=== PATIENT | female | born 1940 | race Caucasian/White ===

== ENCOUNTER 2016-09-18 08:34 | Outpatient (CLI) | payer MEDICARE, OTHER | END 2016-09-18 08:35 | disposition home or self-care (01) | DX: Z01.818 Encounter for other preprocedural examination (principal) ==

== ENCOUNTER 2016-09-18 09:35 | Outpatient (CLI) | payer MEDICARE, OTHER | END 2016-09-18 09:36 | disposition home or self-care (01) | DX: Z01.818 Encounter for other preprocedural examination (principal); J44.9 Chronic obstructive pulmonary disease, unspecified ==

== ENCOUNTER 2017-01-02 13:40 | Outpatient (CLI) | payer MEDICARE ==
[2017-01-02 14:17] LABS: ALBUMIN/GLOBULIN RATIO 1.2 (1.0-2.2); BILIRUBIN,TOTAL 0.7 mg/dL (0.2-1.0); CALCIUM 8.3 mg/dL (8.5-10.3); CREATININE 1.1 mg/dL (0.4-1.0); POTASSIUM 3.7 mmol/L (3.5-5.0); TOTAL PROTEIN 5.9 g/dL (6.7-8.2)
== END 2017-01-02 13:41 | disposition home or self-care (01) ==
LOC: LAB 13:40
PROVIDERS: ATTEND Physician Assistant Surgical
DX: N18.9 Chronic kidney disease, unspecified (principal)
CPT/HCPCS: 36415; 80053

== ENCOUNTER 2017-11-04 01:35 | Outpatient (CLI) | payer MEDICARE | END 2017-11-04 01:36 | disposition critical access hospital (66) | LOC: EMS 01:35 | PROVIDERS: ATTEND Surgery | DX: R10.9 Unspecified abdominal pain (principal); R11.0 Nausea | CPT/HCPCS: A0425; A0427 ==

== ENCOUNTER 2017-11-04 02:12 | Emergency (ER) | payer MEDICARE ==
--- NOTE | 2017-11-04 02:19 | ED Physician Documentation ---
PD HPI ABD PAIN - Stated complaint Stated Complaint: RUQ PAIN - History obtained from History obtained from: Patient, EMS - History of Present Illness Timing - onset: Today Timing - details: Abrupt onset, Still present Quality: Cramping, Aching, Sharp Location: RUQ Radiation: Right flank Worsened by: Eating Associated symptoms: Nausea. No: Vomiting, Diarrhea, Constipation Similar symptoms before: Has not had sx before Recently seen: Not recently seen - Additional information Additional information: Patient is a 77 year old female with a history of prior sbo and bowel resection who is presenting to the emergency department for abdominal pain. According to patient and ems, about an hour after eating grilled cheese patient developed right upper quadrant pain. patient thought the pain would go away but it persisted so she called ems. patient was treated with 50mcg enroute. Review of Systems Constitutional: denies: Fever, Chills Cardiac: denies: Chest pain / pressure, Palpitations Respiratory: denies: Dyspnea, Cough, Wheezing GI: reports: Abdominal Pain, Nausea. 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 - Present Medications Home Medications: Ambulatory Orders Medication Instructions Recorded Confirmed Lisinopril/Hydrochlorothiazide 1 each PO DAILY 06/26/13 02/25/16 [Lisinopril-Hctz 20-25 mg Tab] Pramipexole Di-HCl [Mirapex] 0.75 mg PO QPM 12/15/14 02/25/16 Escitalopram Oxalate [Lexapro] 40 mg PO DAILY 10/13/15 02/25/16 Levothyroxine Sodium [Synthroid] 100 mcg PO QDAC 02/25/16 02/25/16 Budesonide 0.25 mg IH BID #60 ampul.neb 02/26/16 Cefpodoxime Proxetil 200 mg PO BID #16 tablet 02/26/16 Ipratropium/Albuterol [Duoneb] 3 ml INH Q4HR #120 neb 02/26/16 Levothyroxine [Synthroid] 125 mcg PO DAILY tablet 02/26/16 Nebulizer Accessories [Pillow Mask] 1 each MC DAILY #30 each 02/26/16 Nebulizer [Aeroneb Go Nebulizer] 1 each MC RTDAILY #1 each 02/26/16 Nicotine 7 mg Patch [Nicoderm] 1 patch TOP DAILY #30 patch 02/26/16 predniSONE [Deltasone] 60 mg PO DAILY #8 tablet 02/26/16 Oxycodone HCl/Acetaminophen 1 - 2 each PO Q6H PRN #14 tablet 11/04/17 [Percocet 5-325 mg Tablet] - Allergies Allergies/Adverse Reactions: Allergies Allergy/AdvReac Type Severity Reaction Status Date / Time No Known Drug Allergies Allergy Verified 02/25/16 02:24 - Social History Does the pt smoke?: Yes Smoking Status: Former smoker Does the pt drink ETOH?: No Does the pt have substance abuse?: No - Immunizations Immunizations are current?: Yes - POLST Patient has POLST: Yes POLST Status: Limited Interventions PD ED PE NORMAL - Vitals Vital signs reviewed: Yes - General General: Alert and oriented X 3, Well developed/nourished - HEENT HEENT: Atraumatic, PERRL - Neck Neck: Supple, no meningeal sign - Cardiac Cardiac: RRR, No murmur - Respiratory Respiratory: No respiratory distress - Derm Derm: Normal color, Warm and dry, No rash - Extremities Extremities: No deformity - Neuro Neuro: Alert and oriented X 3, No motor deficit, Normal speech Eye Opening: Spontaneous Motor: Obeys Commands Verbal: Oriented GCS Score: 15 - Psych Psych: Normal mood PD ED PE EXPANDED - HEENT HEENT: Dry mucous membranes - Abdomen Abdomen: Tender to palpation, RUQ. No: Rebound, Guarding Results - Vitals Vitals: Vital Signs - 24 hr 11/04/17 11/04/17 11/04/17 02:17 02:56 03:39 Temperature 36.5 C Heart Rate 83 80 79 Respiratory 17 25 H 16 Rate Blood Pressure 179/81 H 204/95 H 186/72 H O2 Saturation 97 97 94 Oxygen O2 Source Room air - Labs Labs: Laboratory Tests 11/04/17 11/04/17 11/04/17 02:30 02:30 02:30 WBC 6.0 RBC 3.96 L Hgb 13.1 Hct 38.7 MCV 97.6 MCH 33.0 H MCHC 33.9 RDW 13.0 Plt Count 270 MPV 8.5 Neut # (Auto) 4.4 Lymph # (Auto) 0.9 L [place] # (Auto) 0.6 Eos # (Auto) 0.1 Baso # (Auto) 0.0 Absolute Nucleated RBC 0.00 Nucleated RBC % 0.0 PT 10.7 INR 0.9 APTT 25.6 Sodium 135 Potassium 3.4 L Chloride 102 Carbon Dioxide 25 Anion Gap 8.0 BUN 19 Creatinine 0.8 Estimated GFR (MDRD) 70 L Glucose 133 H Lactic Acid Calcium 8.1 L Total Bilirubin 0.4 AST 24 ALT 18 Alkaline Phosphatase 74 Troponin I Total Protein 6.5 L Albumin 3.2 Globulin 3.3 Albumin/Globulin Ratio 1.0 Lipase 144 H Urine Color Urine Clarity Urine pH Ur Specific [place] Urine Protein Urine Glucose (UA) Urine Ketones Urine Occult Blood Urine Nitrite Urine Bilirubin Urine Urobilinogen Ur Leukocyte Esterase Ur Microscopic Review Urine Culture Comments 11/04/17 11/04/17 11/04/17 02:30 02:30 02:44 WBC RBC Hgb Hct MCV MCH MCHC RDW Plt Count MPV Neut # (Auto) Lymph # (Auto) [place] # (Auto) Eos # (Auto) Baso # (Auto) Absolute Nucleated RBC Nucleated RBC % PT INR APTT Sodium Potassium Chloride Carbon Dioxide Anion Gap BUN Creatinine Estimated GFR (MDRD) Glucose Lactic Acid 1.2 Calcium Total Bilirubin AST ALT Alkaline Phosphatase Troponin I < 0.04 Total Protein Albumin Globulin Albumin/Globulin Ratio Lipase Urine Color YELLOW Urine Clarity CLEAR Urine pH 6.5 Ur Specific [place] 1.020 Urine Protein NEGATIVE Urine Glucose (UA) NEGATIVE Urine Ketones NEGATIVE Urine Occult Blood NEGATIVE Urine Nitrite NEGATIVE Urine Bilirubin NEGATIVE Urine Urobilinogen 0.2 (NORMAL) Ur Leukocyte Esterase NEGATIVE Ur Microscopic Review NOT INDICATED Urine Culture Comments NOT INDICATED - Rads (name of study) ct abd pelvis Radiology: Final report received, See rad report (no definitive findings for abd pain, but left sided lung mass appreciated) PD MEDICAL DECISION MAKING - ED course Complexity details: reviewed old records, reviewed results, re-evaluated patient , considered differential, d/w patient ED course: Patient was seen and examined at bedside. Iv access was gained and labs were drawn. Urine was collected. Patient's pain returned as the fentanyl wore off. Patient was treated with fluids and morphine for pain. Patient was found to have elevated lipase and normal urinalysis. CT abd/pelvis was ordered. when patient returned from imaging the results were reviewed. there was not clear explanation for her abdominal pain but there was a left sided lung mass. Patient was made aware of the findings. Patient was given detailed discharge and follow up instructions and was stable for discharge with outpatient follow up. - Sepsis Event Vital Signs: Vital Signs - 24 hr 11/04/17 11/04/17 11/04/17 02:17 02:56 03:39 Temperature 36.5 C Heart Rate 83 80 79 Respiratory 17 25 H 16 Rate Blood Pressure 179/81 H 204/95 H 186/72 H O2 Saturation 97 97 94 Oxygen O2 Source Room air Departure - Departure Disposition: 01 Home, Self Care Clinical Impression: Abdominal pain Condition: Good Instructions: ED Abdominal Pain Unkn Cause Follow-Up: Rafiq Mejia MD [Provider Admit Priv/Credential] - Prescriptions: Oxycodone HCl/Acetaminophen [Percocet 5-325 mg Tablet] 1 - 2 each PO Q6H PRN # 14 tablet PRN Reason: pain Comments: Your diagnostics today did not give a good reason for your abdominal pain. your lipase (pancreatic enzyme) was slightly elevated but your pancreas looked ok on CT. The pain still sounds like it could be your gallbladder. The first thing to do is to change your diet. You should cut out fried/fatty foods and red meat. You can take ibuprofen 600mg and [id number] as needed for pain. You were also found to have a mass in the left lung. it is important that you follow up with your doctor for further evaluation. You should return to the emergency department for fevers, chills, vomiting, new worsening or uncontrollable symptoms.
[2017-11-04 02:36] LABS: BASOPHILS % (AUTO) 0.4 %; EOSINOPHILS # (AUTO) 0.1 10^3/uL (0.0-0.7); HGB - HEMOGLOBIN 13.1 g/dL (12.0-16.0); LYMPHOCYTES # (AUTO) 0.9 10^3/uL (1.5-3.5); LYMPHOCYTES % (AUTO) 14.6 %; MEAN CORPUSCULAR HGB CONC 33.9 g/dL (32.0-36.0); MEAN CORPUSCULAR VOLUME 97.6 fL (81.0-99.0); MEAN PLATELET VOLUME 8.5 fL (7.9-10.8); MONOCYTES # (AUTO) 0.6 10^3/uL (0.0-1.0); NEUTROPHILS # (AUTO) 4.4 10^3/uL (1.5-6.6); PLT - PLATELET COUNT 270 10^3/uL (130-450); RED BLOOD COUNT 3.96 10^6/uL (4.20-5.40)
[2017-11-04 02:41] LABS: INR 0.9 (0.8-1.2); PT - PROTHROMBIN TIME 10.7 secs (9.9-12.6)
[2017-11-04 02:49] LABS: ALBUMIN 3.2 g/dL (3.2-5.5); BILIRUBIN,TOTAL 0.4 mg/dL (0.2-1.0); CALCIUM 8.1 mg/dL (8.5-10.3); CREATININE 0.8 mg/dL (0.4-1.0); TOTAL PROTEIN 6.5 g/dL (6.7-8.2)
[2017-11-04] MEDS ORDERED: MORPHINE 10 MG/ML VIAL IVP STA (02:52)
[2017-11-04] MEDS ORDERED: SODIUM CHLORIDE 0.9% 1,000 ML IV ONE (02:53)
[2017-11-04 02:54] LABS: BILIRUBIN,URINE NEGATIVE (NEGATIVE); GLUCOSE, URINE (UA) NEGATIVE (NEGATIVE); KETONES,URINE (UA) NEGATIVE (NEGATIVE); LEUKOCYTE ESTERASE, URINE NEGATIVE (NEGATIVE); NITRITE,URINE NEGATIVE (NEGATIVE); OCCULT BLOOD,URINE NEGATIVE (NEGATIVE); PH,URINE 6.5 PH (5.0-7.5); PROTEIN,URINE NEGATIVE (NEGATIVE); UROBILINOGEN,URINE 0.2 (NORMAL) E.U./dL (NORMAL)
[2017-11-04 02:56] LABS: CLARITY,URINE CLEAR (CLEAR)
[2017-11-04] MEDS ORDERED: IOPAMIDOL-300 100 ML VIAL ONE (03:12)
[2017-11-04] MEDS ORDERED: IOPAMIDOL-300 100 ML VIAL IVP ONE (03:30)
--- NOTE | 2017-11-04 03:55 | CT Report ---
Procedure Date: 11/04/2017 Accession Number: [id number] / [id number] Procedure: CT - Abdomen/Pelvis W/ CPT Code: FULL RESULT: EXAM: CT ABDOMEN AND PELVIS EXAM DATE: 11/04/2017 03:33 AM. CLINICAL HISTORY: Abdominal pain, elevated lipase. COMPARISONS: 03/25/2015. TECHNIQUE: Routine helical CT imaging was performed through the abdomen and pelvis. IV contrast: ISOVUE 300 100mL. Enteric contrast: No. Reconstructions: Coronal and sagittal. In accordance with CT protocol optimization, one or more of the following dose reduction techniques were utilized for this exam: automated exposure control, adjustment of mA and/or KV based on patient size, or use of iterative reconstructive technique. FINDINGS: Lung Bases: Masslike consolidation in the lingula, not completely included on the exam. Liver: Possible fatty infiltration. Gallbladder/Bile Ducts: Unremarkable. Spleen: Normal. Pancreas: No obvious abnormality seen. Adrenal Glands: Normal. Kidneys: Normal. No masses or hydronephrosis. Peritoneal Cavity/Bowel: Status post right hemicolectomy. Moderate stool in the colon. There are colonic diverticula. No diverticulitis identified. No bowel obstruction seen. No free air or free fluid. Duodenal diverticulum. No lymphadenopathy. Pelvic Organs: Uterus is not seen. Visualized pelvic organs are grossly unremarkable. There is streak artifact through the pelvis. Vasculature: Moderate atherosclerosis. Mild infrarenal aortic ectasia measuring 2.4 cm. No aortic aneurysm. Bones: Right hip prosthesis. Degenerative changes in the spine with grade 1 degenerative spondylolisthesis at L4-L5. Spinal stenosis. Other: None. IMPRESSION: 1. Masslike consolidation in the lingula, not completely included on the exam. Malignancy not excluded. 2. No obvious pancreatic abnormality. This does not entirely exclude pancreatitis in the appropriate clinical setting. 3. Status post right hemicolectomy with moderate stool in the colon. No bowel obstruction seen. RADIA
[2017-11-04 05:00] VITALS: BP 186/75
== END 2017-11-04 05:01 | disposition home or self-care (01) ==
LOC: EDUNIT# → ED 02:12 → SUPCPDRO 02:12 → ED 05:01
DX: R10.11 Right upper quadrant pain (principal); R91.8 Other nonspecific abnormal finding of lung field; Z87.891 Personal history of nicotine dependence; I10 Essential (primary) hypertension; E03.9 Hypothyroidism, unspecified; F32.9 Major depressive disorder, single episode, unspecified; F41.9 Anxiety disorder, unspecified
CPT/HCPCS: 74177; 80053; 81003; 83605; 83690; 84484; 85025; 85610; 85730; 96361; 96374; 99283; 99284; Q9967; 36415; 81001; 87086

== ENCOUNTER 2017-12-19 11:50 | Outpatient (CLI) | payer MEDICARE | END 2017-12-19 11:51 | disposition critical access hospital (66) | LOC: EMS 11:50 | PROVIDERS: ATTEND Surgery | DX: R06.02 Shortness of breath (principal); M54.9 Dorsalgia, unspecified | CPT/HCPCS: A0425; A0427 ==

== ENCOUNTER 2017-12-19 12:29 | Emergency (ER) | payer MEDICARE ==
--- NOTE | 2017-12-19 12:54 | ED Physician Documentation ---
PD HPI DYSPNEA - Stated complaint Stated Complaint: SOA - Chief complaint Chief Complaint: Resp - History obtained from History obtained from: Patient, EMS - History of Present Illness Timing - onset: Other (This is a 77-year-old woman with recent diagnosis of lung cancer on the left, I am not sure what type. She has had a biopsy and is planned for another procedure, sounding like a bronchoscopy with bronchial stenting and another biopsy this coming Thursday at [facility]. For the last 3 days she has had increasing shortness of breath, she has a mild cough and a single episode of small hemoptysis a few days ago. She denies any fevers. She denies pedal edema or calf pain. She fell last night, it sounds like a mechanical fall. She just got up too fast. She may have hit her left chest and she does have focal pain there.) Review of Systems Ten Systems: 10 systems reviewed and negative Constitutional: reports: Fatigue. denies: Fever, Chills Nose: denies: Rhinorrhea / runny nose, Congestion Cardiac: reports: Chest pain / pressure. denies: Palpitations, Pedal edema, Calf pain Respiratory: reports: Dyspnea, Cough. 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 - Present Medications Home Medications: Ambulatory Orders Medication Instructions Recorded Confirmed Lisinopril/Hydrochlorothiazide 1 each PO DAILY 06/26/13 02/25/16 [Lisinopril-Hctz 20-25 mg Tab] Pramipexole Di-HCl [Mirapex] 0.75 mg PO QPM 12/15/14 02/25/16 Escitalopram Oxalate [Lexapro] 40 mg PO DAILY 10/13/15 02/25/16 Levothyroxine Sodium [Synthroid] 100 mcg PO QDAC 02/25/16 02/25/16 Budesonide 0.25 mg IH BID #60 ampul.neb 02/26/16 Cefpodoxime Proxetil 200 mg PO BID #16 tablet 02/26/16 Ipratropium/Albuterol [Duoneb] 3 ml INH Q4HR #120 neb 02/26/16 Levothyroxine [Synthroid] 125 mcg PO DAILY tablet 02/26/16 Nebulizer Accessories [Pillow Mask] 1 each MC DAILY #30 each 02/26/16 Nebulizer [Aeroneb Go Nebulizer] 1 each MC RTDAILY #1 each 02/26/16 Nicotine 7 mg Patch [Nicoderm] 1 patch TOP DAILY #30 patch 02/26/16 predniSONE [Deltasone] 60 mg PO DAILY #8 tablet 02/26/16 Ondansetron Odt [Zofran] 4 mg TL Q6H PRN #14 tablet 11/04/17 Oxycodone HCl/Acetaminophen 1 - 2 each PO Q6H PRN #14 tablet 11/04/17 [Percocet 5-325 mg Tablet] Clindamycin [Cleocin] 300 mg PO Q6H 10 Days capsule 12/19/17 - Allergies Allergies/Adverse Reactions: Allergies Allergy/AdvReac Type Severity Reaction Status Date / Time No Known Drug Allergies Allergy Verified 02/25/16 02:24 - Social History Does the pt smoke?: Yes Smoking Status: Current every day smoker Does the pt drink ETOH?: No Does the pt have substance abuse?: No - Family History Family history: reports: Non contributory - Immunizations Immunizations are current?: Yes - POLST Patient has POLST: Yes POLST Status: Limited Interventions PD ED PE NORMAL - Vitals Vital signs reviewed: Yes - General General: Alert and oriented X 3, No acute distress - HEENT HEENT: PERRL, EOMI - Neck Neck: Supple, no meningeal sign, No bony TTP - Cardiac Cardiac: RRR, No murmur - Respiratory Respiratory: No respiratory distress, Other (Relatively clear, maybe some mild rhonchi at the bases, she points to an area around the posterior axillary line, may be a rib 8 as the site of her pain but I am unable to reproduce it by palpation.) - Abdomen Abdomen: Soft, Non tender - Back Back: No CVA TTP, No spinal TTP - Derm Derm: Normal color, Warm and dry - Extremities Extremities: No edema, No calf tenderness / cord - Neuro Neuro: Alert and oriented X 3, Normal speech - Psych Psych: Normal mood, Normal affect Results - Vitals Vitals: Vital Signs - 24 hr 12/19/17 12/19/17 12:31 14:42 Temperature 37.1 C Heart Rate 94 87 Respiratory 18 26 H Rate Blood Pressure 164/53 H 133/99 H O2 Saturation 93 100 Oxygen O2 Source Nasal cannula - EKG (time done) 1233 Rate: Rate (enter#) (93) Rhythm: NSR [place]: Normal Intervals: Normal [place] QRS: Normal Ischemia: Q waves (inf III only), Non specific changes (early R wave transition) - Labs Labs: Laboratory Tests 12/19/17 12/19/17 12/19/17 13:00 13:00 13:00 WBC 15.9 H RBC 3.98 L Hgb 12.7 Hct 37.5 MCV 94.2 MCH 32.0 H MCHC 33.9 RDW 13.2 Plt Count 271 MPV 8.2 Neut # (Auto) 14.1 H Lymph # (Auto) 0.7 L [place] # (Auto) 1.0 Eos # (Auto) 0.0 Baso # (Auto) 0.1 Absolute Nucleated RBC 0.00 Nucleated RBC % 0.0 Sodium 130 L Potassium 3.5 Chloride 96 L Carbon Dioxide 26 Anion Gap 8.0 BUN 16 Creatinine 0.9 Estimated GFR (MDRD) 61 L Glucose 132 H Calcium 8.3 L Total Bilirubin 0.7 AST 21 ALT 14 Alkaline Phosphatase 56 Troponin I < 0.04 Total Protein 7.0 Albumin 3.4 Globulin 3.6 Albumin/Globulin Ratio 0.9 L Lipase 22 - Rads (name of study) CT PA Radiology: EMP read contemporaneously, See rad report PD MEDICAL DECISION MAKING - ED course ED course: 77-year-old woman with known left lower lobe lung cancer presents with dyspnea over the last 3 days, differential diagnosis and postobstructive pneumonia, PE at out. Based on the appearance of the CAT scan I wonder if she does have a little bit of a postobstructive pneumonia, there is no evidence of PE, this is corroborated by elevated white blood cell count we will put her on clindamycin pending her procedure in a few days. - Sepsis Event Vital Signs: Vital Signs - 24 hr 12/19/17 12/19/17 12:31 14:42 Temperature 37.1 C Heart Rate 94 87 Respiratory 18 26 H Rate Blood Pressure 164/53 H 133/99 H O2 Saturation 93 100 Oxygen O2 Source Nasal cannula Departure - Departure Disposition: Home, Self Care Clinical Impression: Lung cancer Qualifiers: Laterality: left Lung location: lower lobe of lung Qualified Code(s): C34.32 - Malignant neoplasm of lower lobe, left bronchus or lung Dyspnea Qualifiers: Dyspnea type: dyspnea on exertion Qualified Code(s): R06.09 - Other forms of dyspnea Condition: Good Record reviewed to determine appropriate education?: Yes Instructions: Pneumonia Dc Prescriptions: Clindamycin [Cleocin] 300 mg PO Q6H 10 Days capsule Comments: Follow-up with Chey Curran on Thursday as scheduled. Return if worsening. Your blood pressure was elevated today on check into the emergency department. This does not mean that you have hypertension, it is a common phenomenon to come to the emergency department and have elevated blood pressure. I recommend that you see your primary care physician within the week to have it rechecked when you are feeling better.
[2017-12-19] MEDS ORDERED: IOPAMIDOL-300 100 ML VIAL ONE (12:58)
[2017-12-19 13:08] LABS: BASOPHILS # (AUTO) 0.1 10^3/uL (0.0-0.1); BASOPHILS % (AUTO) 0.8 %; EOSINOPHILS % (AUTO) 0.2 %; HGB - HEMOGLOBIN 12.7 g/dL (12.0-16.0); LYMPHOCYTES # (AUTO) 0.7 10^3/uL (1.5-3.5); LYMPHOCYTES % (AUTO) 4.1 %; MEAN CORPUSCULAR HGB CONC 33.9 g/dL (32.0-36.0); MEAN CORPUSCULAR VOLUME 94.2 fL (81.0-99.0); MEAN PLATELET VOLUME 8.2 fL (7.9-10.8); MONOCYTES % (AUTO) 6.2 %; NEUTROPHILS # (AUTO) 14.1 10^3/uL (1.5-6.6); NEUTROPHILS % (AUTO) 88.7 %; PLT - PLATELET COUNT 271 10^3/uL (130-450); RED BLOOD COUNT 3.98 10^6/uL (4.20-5.40); RED CELL DISTRIBUTION WIDTH 13.2 % (12.0-15.0); WHITE BLOOD COUNT 15.9 x10^3/uL (4.8-10.8)
[2017-12-19 14:07] LABS: ALBUMIN 3.4 g/dL (3.2-5.5); ALBUMIN/GLOBULIN RATIO 0.9 (1.0-2.2); BILIRUBIN,TOTAL 0.7 mg/dL (0.2-1.0); CALCIUM 8.3 mg/dL (8.5-10.3); CREATININE 0.9 mg/dL (0.4-1.0)
[2017-12-19] MEDS ORDERED: IOPAMIDOL-300 100 ML VIAL IVP ONE (14:34)
--- NOTE | 2017-12-19 14:51 | CT Report ---
Procedure Date: 12/19/2017 Accession Number: [id number] / [id number] Procedure: CT - Chest Angio (PE) CPT Code: FULL RESULT: EXAM: CT ANGIOGRAM CHEST EXAM DATE: 12/19/2017 02:31 PM. CLINICAL HISTORY: Dyspnea, LLL Lung CA. COMPARISON: No previous imaging of the chest available. TECHNIQUE: Routine helical imaging was performed through the chest in the pulmonary arterial phase. IV Contrast: 80 cc Isovue 300. Reconstructions: Coronal 3-D MIP reconstructions.Sagittal and coronal. In accordance with CT protocol optimization, one or more of the following dose reduction techniques were utilized for this exam: automated exposure control, adjustment of mA and/or KV based on patient size, or use of iterative reconstructive technique. FINDINGS: Pulmonary Arteries: Diagnostic quality: Adequate through the segmental arteries. There is a moderate degree of respiratory motion artifact and SVC contrast artifact. No pulmonary embolism to the segmental level. Main pulmonary artery is normal in size. Lungs/Pleura: There is a consolidative opacity in the left lung extending from the left hilum towards the periphery of the anterior left lower lobe. This mass is partially cavitary and contains internal gas. Mass measures 9 x 7.1 cm in size. There is broad contact with the left upper lobe and left lower lobe airways and vessels. Suspicious for invasion into the mediastinal fat. There is a separate left upper lobe irregular nodular density measuring 3.5 x 1.7 cm. There is a trace left pleural effusion versus pleural thickening. There is consolidation in the posterior lingula. Mediastinum: No pericardial effusion. Heart size is normal. No mediastinal lymphadenopathy identified. Thoracic Aorta: There is diffuse moderate calcification without aneurysm. Upper Abdomen: Visible portion unremarkable. Other: None. IMPRESSION: 1. Negative for acute pulmonary embolism. 2. Large left lower lobe consolidation/mass, also involving the lingula with differential including malignancy and pneumonia. There is a cavitary component to a portion of the mass. Comparison with previous imaging would be useful to evaluate stability. 3. Separate left upper lobe spiculated apical mass with adjacent fibrosis. 4. Trace left pleural effusion. 5. No aortic aneurysm or dissection. RADIA
[2017-12-19] MEDS ORDERED: CLINDAMYCIN 150 MG CAPSULE PO STA (14:56)
[2017-12-19 15:17] VITALS: BP 124/59
== END 2017-12-19 15:17 | disposition home or self-care (01) ==
LOC: EDUNIT# → ED 12:29 → SUPCPDRO 12:29 → ED 15:17
DX: C34.32 Malignant neoplasm of lower lobe, left bronchus or lung (principal); R06.09 Other forms of dyspnea; I10 Essential (primary) hypertension; E03.9 Hypothyroidism, unspecified; Z96.659 Presence of unspecified artificial knee joint; F17.200 Nicotine dependence, unspecified, uncomplicated
CPT/HCPCS: 36415; 71275; 80053; 83690; 84484; 85025; 93005; 99283; 99284; A9270; Q9967